=== PATIENT | male | born 1935 | race Caucasian/White ===

== ENCOUNTER → 2020-12-14 | Outpatient (CLI) | payer MEDICARE, OTHER ==
[~2020-12-14] MED LIST: ELIQUIS5 MG PO; FURO20; FURO20 PO; Ferrous Sulfate PO; LOSA50 PO; METO100ER PO; PACERONE100 M1 PO; PANT40 PO; PRAVASTATIN SOD40 MG PO; SPIR25 PO; TRESIBA SC
[2020-12-14 20:44] LABS: Creatinine, Urine Random 59.3 mg/dL (27.00-270.00); Microalb/Creat Ratio UR, Rand 8.651 mg/g (0.000-30.000); Microalbumin, Random Urine 5.13 mg/L (0.000-20.000)
== END | disposition home or self-care (01) ==
LOC: LAB SHORT 16:18 → LAB EV 16:18
PROVIDERS: Family Medicine
DX: E11.65 Type 2 diabetes mellitus with hyperglycemia (principal)
CPT/HCPCS: 82043; 82570

== ENCOUNTER 2021-04-22 23:06 | Emergency (ER) | payer MEDICARE, OTHER ==
[~2021-04-22] VITALS: Ht 177.8 cm; Wt 72.6 kg
== END 2021-04-23 20:48 | disposition home or self-care (01) ==
LOC: ER 23:06
DX: E11.649 Type 2 diabetes mellitus with hypoglycemia without coma (principal); I48.91 Unspecified atrial fibrillation; Z79.899 Other long term (current) drug therapy; Z79.01 Long term (current) use of anticoagulants; Z79.4 Long term (current) use of insulin
CPT/HCPCS: 82947; 96365; 96366; 99284-25

== ENCOUNTER → 2021-05-09 | Outpatient (CLI) | payer MEDICARE, OTHER ==
[2021-05-09 09:41] LABS: Calcium, Blood 9.5 mg/dL (8.5-10.1); Creatinine, Blood 1.69 mg/dL (0.60-1.20); Potassium, Blood 4.5 mmol/L (3.5-5.5)
== END | disposition home or self-care (01) ==
LOC: LAB 09:04 → LAB SHORT 09:04
PROVIDERS: Family Medicine
DX: R05.9 Cough, unspecified (principal)
CPT/HCPCS: 80048; 83880

== ENCOUNTER → 2021-08-16 | Outpatient (CLI) | payer MEDICARE, OTHER ==
[2021-08-16 10:13] LABS: BASOPHILS ABSOLUTE AUTO 0.03 K/mm3 (0.00-0.23); BASOPHILS PERCENT AUTO 0 % (0-2); EOSINOPHILS ABSOLUTE AUTO 0.16 K/mm3 (0.00-0.68); EOSINOPHILS PERCENT AUTO 2 % (0-6); Hematocrit 41.2 % (37.0-53.0); IMMATURE GRAN ABSOLUTE AUTO 0.02 K/mm3 (0.00-0.10); IMMATURE GRAN PERCENT AUTO 0 % (0-1); LYMPHOCYTES ABSOLUTE AUTO 0.73 K/mm3 (0.84-5.20); LYMPHOCYTES PERCENT AUTO 10 % (21-46); MONOCYTES ABSOLUTE AUTO 0.54 K/mm3 (0.16-1.47); MONOCYTES PERCENT AUTO 8 % (4-13); Mean Corpuscular HGB 32.1 pg (26.0-34.0); Mean Corpuscular Volume 95 fL (80-100); Mean Platelet Volume 9.7 fL (9.1-12.4); NEUTROPHILS ABSOLUTE AUTO 5.61 K/mm3 (1.96-9.15); NEUTROPHILS PERCENT AUTO 79 % (41-73); Platelet Count 170 K/mm3 (150-400); RDW Coefficient Variation 13.2 % (11.7-14.2); RDW Standard Deviation 45.9 fL (35.1-46.3); Red Blood Cell Count 4.36 M/mm3 (4.30-5.90); White Blood Cell Count 7.09 K/mm3 (4.00-11.30)
[2021-08-16 10:21] LABS: Albumin, Blood 3.4 g/dL (3.4-5.0); Albumin/Globulin Ratio 0.8 (0.8-1.8); Bun/Creatinine Ratio 19.2 (12.0-20.0); Calcium, Blood 9.2 mg/dL (8.5-10.1); Creatinine, Blood 1.72 mg/dL (0.60-1.20); Globulin, Blood 4.4 g/dL (2.2-4.0); Potassium, Blood 4.7 mmol/L (3.5-5.5); Total Protein, Blood 7.8 g/dL (6.4-8.2)
== END | disposition home or self-care (01) ==
LOC: LAB SHORT 10:08
PROVIDERS: Physician Assistant
DX: R10.32 Left lower quadrant pain (principal)
CPT/HCPCS: 80053; 83690; 85025

== ENCOUNTER → 2021-08-18 | Outpatient (CLI) | payer MEDICARE, OTHER ==
[2021-08-18 10:47] LABS: BASOPHILS ABSOLUTE AUTO 0.04 K/mm3 (0.00-0.23); BASOPHILS PERCENT AUTO 1 % (0-2); EOSINOPHILS ABSOLUTE AUTO 0.13 K/mm3 (0.00-0.68); EOSINOPHILS PERCENT AUTO 2 % (0-6); Hematocrit 41.4 % (37.0-53.0); Hemoglobin 13.9 g/dL (13.5-17.5); IMMATURE GRAN ABSOLUTE AUTO 0.03 K/mm3 (0.00-0.10); IMMATURE GRAN PERCENT AUTO 0 % (0-1); LYMPHOCYTES ABSOLUTE AUTO 0.88 K/mm3 (0.84-5.20); LYMPHOCYTES PERCENT AUTO 11 % (21-46); MONOCYTES PERCENT AUTO 6 % (4-13); Mean Corpuscular HGB 31.8 pg (26.0-34.0); Mean Corpuscular HGB Conc 33.6 g/dL (31.5-36.5); Mean Corpuscular Volume 95 fL (80-100); Mean Platelet Volume 9.7 fL (9.1-12.4); NEUTROPHILS ABSOLUTE AUTO 6.81 K/mm3 (1.96-9.15); NEUTROPHILS PERCENT AUTO 81 % (41-73); Platelet Count 185 K/mm3 (150-400); RDW Coefficient Variation 13.3 % (11.7-14.2); RDW Standard Deviation 46.5 fL (35.1-46.3); Red Blood Cell Count 4.37 M/mm3 (4.30-5.90); White Blood Cell Count 8.39 K/mm3 (4.00-11.30)
[2021-08-18 10:56] LABS: Albumin, Blood 3.5 g/dL (3.4-5.0); Albumin/Globulin Ratio 0.8 (0.8-1.8); Bilirubin, Total 0.9 mg/dL (0.1-1.0); Bun/Creatinine Ratio 16.6 (12.0-20.0); Calcium, Blood 9.4 mg/dL (8.5-10.1); Creatinine, Blood 1.45 mg/dL (0.60-1.20); Globulin, Blood 4.2 g/dL (2.2-4.0); Total Protein, Blood 7.7 g/dL (6.4-8.2)
== END | disposition home or self-care (01) ==
LOC: LAB SHORT 10:41 → LAB 10:41
PROVIDERS: Physician Assistant Surgical
DX: R10.9 Unspecified abdominal pain (principal)
CPT/HCPCS: 80053; 83690; 84484; 85025

== ENCOUNTER 2021-10-09 12:16 | Inpatient (IN) | payer MEDICARE, OTHER ==
[~2021-10-09] VITALS: Ht 177.8 cm; Wt 72.9 kg
[~2021-10-09 12:16] MED LIST changes: +Bactrim Ds Tab1 EACH PO; +ONDA4ODT SL
[2021-10-09 12:38] LABS: BASOPHILS ABSOLUTE AUTO 0.01 K/mm3 (0.00-0.23); BASOPHILS PERCENT AUTO 0 % (0-2); EOSINOPHILS ABSOLUTE AUTO 0.01 K/mm3 (0.00-0.68); EOSINOPHILS PERCENT AUTO 0 % (0-6); Hematocrit 35.5 % (37.0-53.0); Hemoglobin 11.9 g/dL (13.5-17.5); IMMATURE GRAN ABSOLUTE AUTO 0.69 K/mm3 (0.00-0.10); IMMATURE GRAN PERCENT AUTO 4 % (0-1); LYMPHOCYTES ABSOLUTE AUTO 0.18 K/mm3 (0.84-5.20); LYMPHOCYTES PERCENT AUTO 1 % (21-46); MONOCYTES ABSOLUTE AUTO 0.65 K/mm3 (0.16-1.47); MONOCYTES PERCENT AUTO 4 % (4-13); Mean Corpuscular HGB 31.4 pg (26.0-34.0); Mean Corpuscular HGB Conc 33.5 g/dL (31.5-36.5); Mean Corpuscular Volume 94 fL (80-100); Mean Platelet Volume 10.1 fL (9.1-12.4); NEUTROPHILS ABSOLUTE AUTO 14.55 K/mm3 (1.96-9.15); NEUTROPHILS PERCENT AUTO 90 % (41-73); Platelet Count 120 K/mm3 (150-400); RDW Coefficient Variation 13.3 % (11.7-14.2); RDW Standard Deviation 45.4 fL (35.1-46.3); Red Blood Cell Count 3.79 M/mm3 (4.30-5.90); White Blood Cell Count 16.09 K/mm3 (4.00-11.30)
[2021-10-09 12:50] LABS: Albumin, Blood 2.7 g/dL (3.4-5.0); Albumin/Globulin Ratio 0.7 (0.8-1.8); Bilirubin, Direct 0.6 mg/dL (0.0-0.3); Bilirubin, Indirect 1.5 mg/dL (0.1-0.7); Bilirubin, Total 2.1 mg/dL (0.1-1.0); Bun/Creatinine Ratio 17.2 (12.0-20.0); Calcium, Blood 10.4 mg/dL (8.5-10.1); Creatinine, Blood 1.45 mg/dL (0.60-1.20); Globulin, Blood 3.8 g/dL (2.2-4.0); Potassium, Blood 4.9 mmol/L (3.5-5.5); Total Protein, Blood 6.5 g/dL (6.4-8.2)
[2021-10-09 13:12] LABS: International Normalized Ratio 1.29; Prothrombin Time Results 13.3 Sec (9.7-11.5)
[2021-10-09 13:31] LABS: Influenza A, PCR NEGATIVE (NEGATIVE); Influenza B, PCR NEGATIVE (NEGATIVE); Resp Syncytial Virus, PCR NEGATIVE (NEGATIVE); SARS-Cov-2 (COVID-19) PCR, MMC NEGATIVE (NEGATIVE)
[2021-10-09 13:34] LABS: Source, Urine Voided
[2021-10-09 13:49] LABS: Appearance, Urine Hazy (Clear); Bilirubin, Urine Neg (Neg); Blood, Urine 3+ (Neg); Color, Urine Yellow (P-Yellow); Glucose Qualitative, Urine 2+ (Neg); Ketones, Urine 2+ (Neg); Leukocyte Esterase, Urine 1+ (Neg); Nitrite, Urine Neg (Neg); Protein, Urine 3+ (Neg); Specific Gravity, Urine 1.025 (1.003-1.022); Urobilinogen, Urine NORM (Normal)
[2021-10-09 16:25] LABS: Bacteria Mod /hpf; Squamous Epithelial Cells Few /hpf (Few)
[2021-10-09 16:26] LABS: Hyaline Casts 0-2 /lpf (0-2)
[2021-10-09] MEDS ORDERED: FUROSEMIDE20 MG PO (16:47)
[2021-10-09] MEDS ORDERED: ACET500 PO (16:48)
--- NOTE | 2021-10-09 18:47 | NUR ---
SHIFT SUMMARY; PATIENT COMES TO MEDICAL FLOOR AT 1630 TODAY FROM ER. PATIENT HAS MUCH PAIN. PATIENT EXPRESSES PAIN IS 6/10 HOWEVER PATIENT HOLDS HIS BREATH WHEN HE IS MOVED SLIGHTLY AND ALSO WHEN HE LIFTS HIS HANDS TO HIS FACE TO DRINK A CUP OF WATER. HE IS ON A CARDIAC DIET. PATIENT IS ALSO DM TYPE 2. IS CALLED [id number] AND ORDER RECEIVED FOR HUMALOG MED SC. AC AND HS BLOOD SUGARS. IS CALLED AT 1850 AND HE ORDERS PAIN MEDICATION 25 TO 50MCG FENTANYL IV Q4 PRN SEVERE PAIN. ALSO WARMING BLANKET IS ORDERED.
--- NOTE | 2021-10-09 21:45 | NUR ---
TELEMETRY RX OBTAINED D/T PT W/HX AFIB AND PM AND AUSCULTATING RAPID HR AND APICAL PULSE DURING ASSESSMENT. MONITOR READS HR 70'S-80'S BUT WHEN PLACED ON TELEMETRY HE'S AFIB W/HR SUSTAINING 160'S. PLAN TO NOTIFY
--- NOTE | 2021-10-09 22:01 | NUR ---
MADE AWARE OF HR SUSTAINING 150'S-160'S, TOUCHING 180'S WHILE RESTING W/BP 133/113. METROPROLOL 5MG IV NOW RX'D AND RECIEVED, TELE MONITOR AWARE, AWAITING EFFECT. HE DENIES SOB, CP, DYSPNEA AND ALL OTHER S/S DISTRESS OTHER THAN PAIN AND HEARTBURN. PT ALSO RECENTLY VOIDED APPROX 100 MLS CONCENTRATED URINE FOLLOWED BY SUDDEN ONSET BLEEDING FROM URINARY MEATUS. HE ISN'T VOIDIND AT PRESENT BUT CONT'S TO OOZE BLOOD. ABDO IS DISTENDED BUT SOFT AND NONTENDER. PT REPORT IT'S IMPROVED FROM PREVIOUS. MD INSTRUCTED STAFF TO MONITOR BLEEDING FOR S/S WORSENING OR IF PT BECOMES SYTMPTOMATIC FOR POSSIBLE NEED OF UROLOGY CX. HE WAS MADE AWARE OF MISSING HOME MEDS/ORDERS AND MD STATED HE'D EVALUATE NEEDS. WILL MONITOR CLOSELY FOR CHANGES/WORSENING.
--- NOTE | 2021-10-09 22:40 | NUR ---
ALERTED TO HR SUSTAINING 150'S-160'S W/NEW ORDER RECIEVED FOR NS AT 75 ML/HR X1L AND TO GIVE HOME TOPROL XL NOW. GI COCKTAIL ALSO RX'D Q4H PRN FOR PT C/O OF INDIGESTION. PLAN TO MEDICATE FOR "ALL OVER" PAIN W/TYLENOL R/T FALL X1 WEEK PRIOR TO THIS ADMISSION.
--- NOTE | 2021-10-09 23:54 | NUR ---
CALLED FOR UPDATE. PT CONT'S AFIB W/HR 140'S-170'S. NEW ORDERS FOR LOPRESSOR 5MG IV NOW AND TRASFER TO PCU IF RATE CONT'S ELEVATED 30 MINS AFTER DRAG CAR RACER. DISCUSSED ABDO PAIN COMPLAINTS, INDIGESTION, RECENT FALL, DISTENSION AND NO BM X3-4 DAYS W/RX FOR CT OF ABDO/PEVIS. BLADDER SCAN ORDERED W/PULIDO INSERTION FOR RETENTION AND CONT BLADDER IRRIGATION IF BLEEDING AT URINARY MEATUS PERSISTS. WILL MONITOR CLOSELY. ENTERPRISE DATA ARCHITECT AWARE.
[2021-10-10 00:49] LABS: Source, Urine Foley catheter
--- NOTE | 2021-10-10 00:55 | NUR ---
16FR COUDE CATHETER INSERTED BY ERIC SHARPE W/STERILE TECHNIQUE MAINTAINED FOR URINARY RETENTION. BLADDER SCAN >450 MLS AND PT HAD CONTINUED TO C/O ABDO DISTENSION AND LLQ PAIN. DARK NIRANJAN, BLOOD TINGED CONCENTRATED UO OBSERVED. SPECIMEN OBTAINED AND SENT, PENDING CX.
[2021-10-10 00:56] LABS: Bilirubin, Urine Neg (Neg); Blood, Urine 5+ (Neg); Glucose Qualitative, Urine 2+ (Neg); Ketones, Urine 1+ (Neg); Leukocyte Esterase, Urine Neg (Neg); Nitrite, Urine Neg (Neg); Protein, Urine 3+ (Neg); Specific Gravity, Urine 1.025 (1.003-1.022); Urobilinogen, Urine 1+ (Normal)
[2021-10-10 00:57] LABS: Appearance, Urine Cloudy (Clear); Color, Urine Amber (P-Yellow)
[2021-10-10 01:05] LABS: Amorphous Heavy (0-Heavy); Bacteria Few /hpf; Hyaline Casts 0-2 /lpf (0-2); Mucus Light (0-Heavy); Squamous Epithelial Cells Not Seen /hpf (Few); White Blood Cells, Urine 0-2 /hpf (0-5)
--- NOTE | 2021-10-10 01:27 | NUR ---
UPDATED TO VITALS W/ADDITIONAL 25OML NS BOLUS RX'D AND COMMENCED AT THIS TIME. PT COMMENCED ON 1L O2 VIA NC FOR SPO2 88% ON RA. PT DENIES SOB OR DYSPNEA BUT ADMITS TO SHALLOW RAPID BREATHS R/T ABDO AND SHOULDER PAIN. LS REMAIN CLEAR BUT DIMINISHED T/O. SHE INSTRUCTED TO HOLD OFF ON ABDO CT UNTIL BP AND HR ARE BETTER STABILIZED.
--- NOTE | 2021-10-10 02:50 | NUR ---
AFTER 2ND 250ML BOLUS VITALS ONLY MINIMALLY IMPROVED AND UPDATE PROVIDED TO . PT CONT'S HYPOTENSIVE AND TACHYCARDIC W/HR NEVER SUSTAINING LESS THAN 140'S AND SBP NEVER GREATER THAN 92. TEMP UP TO 101.8 W/BLANKETS REMOVED FOR IMPROVEMENT DOWN TO 98.2. INSTRUCTED TO T/F TO PCU. INTERNATIONAL ACCOUNT REPRESENTATIVE AND RN EPITAXIAL REACTOR TECHNICIAN MADE AWARE. BED PLACEMENT PENDING.
--- NOTE | 2021-10-10 03:13 | NUR ---
REPORT PROVIDED TO JOANN, DUCT LAYER AND PT T/F TO PCU 19 AT THIS TIME.
--- NOTE | 2021-10-10 03:40 | NUR ---
UPDATE PT TRANSFERRED TO PCU 19 FROM MEDICAL FLOOR. BP STABLE. OXYGEN SATURATION MAINTAINED ABOVE 92% ON 2 L VIA NC. HR TACHY 120'S-130'S. PHYSICIAN UPDATED, ORDERS FOR CARDIZEM GTT AT 5 ML/HR.
[2021-10-10 03:57] LABS: BASOPHILS ABSOLUTE AUTO 0.02 K/mm3 (0.00-0.23); BASOPHILS PERCENT AUTO 0 % (0-2); EOSINOPHILS PERCENT AUTO 0 % (0-6); Hematocrit 33.7 % (37.0-53.0); Hemoglobin 11.4 g/dL (13.5-17.5); IMMATURE GRAN ABSOLUTE AUTO 0.15 K/mm3 (0.00-0.10); IMMATURE GRAN PERCENT AUTO 1 % (0-1); LYMPHOCYTES ABSOLUTE AUTO 0.28 K/mm3 (0.84-5.20); LYMPHOCYTES PERCENT AUTO 2 % (21-46); MONOCYTES ABSOLUTE AUTO 0.42 K/mm3 (0.16-1.47); MONOCYTES PERCENT AUTO 3 % (4-13); Mean Corpuscular HGB 31.4 pg (26.0-34.0); Mean Corpuscular HGB Conc 33.8 g/dL (31.5-36.5); Mean Corpuscular Volume 93 fL (80-100); Mean Platelet Volume 10.5 fL (9.1-12.4); NEUTROPHILS ABSOLUTE AUTO 11.72 K/mm3 (1.96-9.15); NEUTROPHILS PERCENT AUTO 93 % (41-73); Platelet Count 110 K/mm3 (150-400); RDW Coefficient Variation 13.2 % (11.7-14.2); RDW Standard Deviation 45.7 fL (35.1-46.3); Red Blood Cell Count 3.63 M/mm3 (4.30-5.90); White Blood Cell Count 12.59 K/mm3 (4.00-11.30)
[2021-10-10 04:20] LABS: Bun/Creatinine Ratio 23.1 (12.0-20.0); Calcium, Blood 9.7 mg/dL (8.5-10.1); Creatinine, Blood 1.3 mg/dL (0.60-1.20); Potassium, Blood 4.6 mmol/L (3.5-5.5)
--- NOTE | 2021-10-10 06:14 | NUR ---
SHIFT SUMMARY PT ARRIVED TO UNIT FROM MEDICAL FLOOR DURING SHIFT,SEE NOTES. HR AFIB, TACHY 130'S-140'S, BP STABLE. MAP ABOVE 65. PHYSICIAN ORDERS FOR PT TO START CARDIZEM GTT AT 5ML/HR. NO TITRATION. PLAN FOR PT TO GO TO CT FOR ABD PAIN ONCE HR IS STABILIZED. HR CURRENTLY 110-130. TRENDING DOWN WITH CARDIZEM GTT. OXYGEN SATURATION MAINTAINED ABOVE 92% ON 2 L VIA NC. PT REPORTS PAIN D/T FALL AT HOME ON 10/01. PT STATES HE DOES NOT NEED ANYTHING FOR PAIN AT THIS TIME. PULIDO PATENT AND DRAINING TO GRAVITY. CALL LIGHT WITHIN REACH. WILL CONT TO MONITOR UNTIL REPORT GIVEN TO ELTON BARNES.
--- NOTE | 2021-10-10 07:33 | NUR ---
UPDATE CALLED FOR UDPATE FROM MEDICAL FLOOR. PT GAVE VERBAL CONSENT FOR UPDATE.
--- NOTE | 2021-10-10 14:13 | NUR ---
NOTIFIED DR BROWN OF CT RESULTS AND NO BM SINCE 10/07; NEW ORDERS FOR CLEAR LIQUIDS. WILL CONTINUE TO MONITOR.
--- NOTE | 2021-10-10 16:04 | NUR ---
PER ORDER EKG TO CONFIRM SINUS TACH, NOTIFIED DR BROWN, NEW ORDER TO STOP CARDIZEM GTT. AT APPROX 1500 PT REPORTS "MUSCLE" NECK PAIN, MEDICATED WITH TYLENOL PER ORDERS. PT REPORTS CHEST PAIN, UNABLE TO GIVE NUMERIC VALUE, FACE SCALE 8/10 BY THIS RN; PT STATES IT IS "JUST MUSCLE PAIN", REPORTS PRESSURE TO LEFT SIDE SIDE OF CHEST, PAIN DOES NOT CHANGE WITH MOVEMENT OR BREATHING. PER TELE PT CONVERTED BACK TO AFIB. RESP RATE AND EFFORT INCREASED. NOTIFIED DR BROWN, NEW ORDER TO CHECK TROP AND RESTART CARDIZEM. DR CONNORS AT BEDSIDE, NEW ORDERS FOR LR AT 100 ML/HR. PT REQUESTING ADDITIONAL PAIN MEDICATION, MEDICATED x2 WITH FENTANYL, PT REPORTING SMALL AMOUNT OF RELIEFE. WILL CONTINUE TO MONITOR.
--- NOTE | 2021-10-10 17:29 | NUR ---
SHIFT SUMMARY PATIENT REMAINED ALERT AND ORIENTED T/O THE DAY. HE WAS COOPERATIVE WITH CARE. PATIENT'S CARDIZEM WAS STOPPED AFTER HIS RHYTHM WENT INTO THE SINUS TACH. PATIENT DEVELOPED CP AND UPPER BACK PAIN SOON AFTERWARDS. PATIENT WENT BACK INTO AFIB WITH RATES 110-130'S. DR BROWN WAS NOTIFIED. DR CONNORS WAS CONSULTED, EMAR MEDS UPDATED, AND PATIENT IS NOW ON NPO. PATIENT RECEIVED FENTANYL PER EMAR AND WAS STARTED BACK ON CARDIZEM DRIP. CURRENTLY TELE IS AFIB WITH RATE 110'S. VSS. PATIENT DENIES SOB, N/V, TINGLING/NUMBNESS SENSATION.
--- NOTE | 2021-10-10 19:47 | NUR ---
I HAVE REVIEWED THE FILTER WORKER DOCUMENTATION AND AM IN AGREEMENT. CLARIFIED NPO STATUS AND INSULIN CBG WITH DR BROWN, NEW ORDER FOR Q6 CBG AND INSULIN ENTERED. PT APPEARS TO BE SLEEPING THIS EVENING. PER TELE PT CONVERTED BACK TO SINUS TACH THIS EVENING, NOTIFIED DR BROWN, ORDERS TO CONTINUE CARDIZEM AT LOWEST RATE T/O NIGHT. REPORT GIVEN TO ONCOMING RN.
--- NOTE | 2021-10-10 22:31 | NUR ---
UPDATE PHYSICIAN NOTIFIED OF PT'S BNP OF 283. ORDERS FOR LASIX 40 MG NOW.
--- NOTE | 2021-10-10 23:00 | NUR ---
UPDATE/HOLDING IV FLUIDS D/T PT HAVING INCREASE IN WORK OF BREATHING, AND PT APPEARING IN FLUID OVERLOAD. HOLDING LR AT THIS TIME PER CLINICAL JUDGMENT. WILL INFORM HOSPITALIST.
--- NOTE | 2021-10-10 23:56 | NUR ---
UPDATE DISCUSSED INCREASING PT CONFUSION WITH A CLASS LINEMAN. PLAN FOR PT'S DAUGHTER TO COME SIT BEDSIDE WITH PT TO ASSIST IN RE-DIRECTION AND PROVIDE PT WITH COMFORT.
--- NOTE | 2021-10-11 02:45 | NUR ---
UPDATE\ PT HAVING INCREASE IN CONFUSION. PT MOVED TO [facility] ROOM FOR SAFETY. PT NO LONGER KNOWS WHERE HE IS. PT CONT TO HAVE INCREASED WORK OF BREATHING, HR INCREASING TO 130'S TO 140'S. PHYSICIAN NOTIFIED. ORDERS FOR VBG AND TO CALL HOSPITALIST WITH RESULT.
[2021-10-11 03:20] LABS: Base Excess Venous 2.2 mmol/L; Bicarbonate Venous 26.4 mmol/L (24.0-30.0); PO2 Venous 70.8 mmHg (38-42); pH Blood Venous 7.47 (7.34-7.37)
--- NOTE | 2021-10-11 03:52 | NUR ---
UPDATE PHYSICIAN UPDATED ON PT'S VBG. PT ANXIOUS AT THIS TIME. HR SUSTAINING 140-160. ORDERS FOR ATIVAN 0.5 MG ONCE TO ATTEMPT TO SEE IF PT'S ANXIETY IS CAUSING HIGH HR. INSTRUCTED TO INFORM PHYSICIAN IF HR DOES NOT LOWER AFTER ATIVAN GIVEN.
--- NOTE | 2021-10-11 05:17 | NUR ---
UPDATE PHYSICIAN NOTIFIED PT'S INCREASE IN RR IN 40'S. PT INCREASED TO 6 L VIA NC. RT NOTIFIED. ORDERS FOR CPAP/BIPAP AT THIS TIME. PT VERY AGGITATED PULLING AT LINES. DAUGHTER UPDATED ON PT STATUS, ENCOURAGED TO COME BE WITH PT AT BEDSIDE. PHYSICIAN CALLED TO INFORM OF PT'S AGGITATION, WAITING LEAD TRAINER BACK. POLYTECHNIC REGISTRAR AT BEDSIDE TO ASSIST IN PT FROM PULLING AT LINES. WILL UPDATE ONCE SPOKE WITH PHYSICIAN.
--- NOTE | 2021-10-11 05:24 | NUR ---
UPDATE ORDERS FOR PT TO TRANSFER TO ICU. ICU FAITH DOCTOR INFORMED. WILL CONT TO MONITOR UNTIL REPORT GIVEN TO FINISHER SPECIAL STOCKS.
--- NOTE | 2021-10-11 06:15 | NUR ---
PT TRANSFER/SHIFT SUMMARY PT'S DAUGHTER AT BEDSIDE AT THIS TIME. PRIOR TO PT TRANSFER PT'S DAUGHTER BEBO STATED SHE IS POA AND THAT PT HAS ORDERS FOR DNR. CARPENTER ASSISTANT INSTALLER INFORMED. CARPENTER ASSISTANT INSTALLER TO INFORM PHYSICIAN OF CODE STATUS UPDATE. PRIOR TO TRANSFER PT ON BIPAP, SEE EHR FOR SETTINGS. NEWCOMER HOSTESS AT BEDSIDE TO ASSIST PT FROM PULLING OFF BIPAP AND PULIDO. PT PULLED OUT IV. DAUGHTER AT BEDSIDE WITH PT PRIOR TO TRANSFER, ORDERS FOR BILATERAL SOFT WRIST RESTRAINTS. THIS RN, MOLLY LIANG AND BECCA RT ASSISTED IN PT TRANSFER TO ICU 15. PT HAS ALL BELONGINGS WITH HIM. CARPENTER ASSISTANT INSTALLER INFORMED HOSPITALSIT WANTED TO BE CALLED ONCE TRANSFERRED. DURING SHIFT PT'S HR TACHY, SEE EHR. BP SOFT AT TIMES. MAP REMAINED ABOVE 65. OXYGEN DEMAND INCREASED DURING SHIFT TO MAINTAIN SATS ABOVE 92%. SEE EHR FOR SETTINGS. PT CURRENTLY ON BIPAP AT 50% FIO2 WHEN TRANSFERRED TO ICU. NO CP OR PRESSURE REPORTED DURING SHIFT. PT INCREASINGLY CONFUSED AND AGGITATED T/O SHIFT. PT ALERT AND ORIENTED AT BEGINNING OF SHIFT, AT END OF SHIFT PT ALERT TO SELF AND FAMILY. PT ON CARDIZEM GTT AT 5 MG/5ML/HR. ORDERS FROM HOSPITALIST NOT TO INCREASE RATE OF CARDIZEM D/T BP. HOSPITALIST INFORMED LR STOPPED AT 2200 D/T PT'S INCREASE IN WORK OF BREATHING AND PT APPEARING TO BE IN FLUID OVERLOAD, PHYSICIAN ORDERS TO HOLD LR DURING SHIFT. REPORT GIVEN TO MOLLY SPAULDING AT 0600.
--- NOTE | 2021-10-11 06:47 | NUR ---
ARRIVAL TO ICU PT ARRIVED TO ICU 15 AT 0600 VIA PCU BED AND TRANSFERED TO ICU BED VIA SLIDE SHEET. PT IS ALERT/ORIENTED TO SELF, FAMILY, FOLLOWS DIRECTIONS, AND TOWN BUT IS ALSO CONFUSED ABOUT SITUATION; OCCATIONALLY ASKS FOR FOOD AND HAS VISUAL HALLUCINATIONS. DAUGHTER IS AT BEDSIDE AND IS VERY HELPFUL IN REDIRECTING PT TO NOT PULL AT MASK. BIPAP IN PLACE WITH SETTINGS 14/8, FIO2 40%. HR 140-150. SBP 110-120; CARDIZEM INFUSING AT 5MG/HR, TITRATED UP TO 7MG/HR, DR RAMIREZ NOT WANTING CARDIZEM TO GO OVER 10MG/HR. ABD SEVERLY DISTENDED AND NOT TENDER AT THIS TIME. PULIDO IN PLACE AND DRAINING TO GRAVITY. SEVERAL BRUSES NOTED TO LT EYE, NECK, AND LLE. REPORT GIVEN TO WILLIAM BARNES. DAUGHTER CLARIFIED THAT PT IS A DNR STATUS. DR RAMIREZ NOTIFIED AND ORDER CHANGED. PURPLE DNR BAND ON RT WRIST.
--- NOTE | 2021-10-11 07:19 | NUR ---
Received report from Sivan BARNES. Patient awake in bed with CPAP in place. He is alert to place , self and year, and is able to communicate his needs. CAPAP 15/8 40% and sats 100%. He has 20ga IV in LFA and is infusing Cardizem at 10 mg/hr. He has 167Fr roy draining to gravity light aston colored urine. He is in bilateral soft wrist restraints, skin and circulation checked.
[2021-10-11 08:27] LABS: BASOPHILS ABSOLUTE AUTO 0.06 K/mm3 (0.00-0.23); BASOPHILS PERCENT AUTO 1 % (0-2); EOSINOPHILS PERCENT AUTO 0 % (0-6); Hematocrit 37.1 % (37.0-53.0); Hemoglobin 12.4 g/dL (13.5-17.5); IMMATURE GRAN PERCENT AUTO 1 % (0-1); LYMPHOCYTES ABSOLUTE AUTO 0.31 K/mm3 (0.84-5.20); LYMPHOCYTES PERCENT AUTO 3 % (21-46); MONOCYTES PERCENT AUTO 8 % (4-13); Mean Corpuscular HGB Conc 33.4 g/dL (31.5-36.5); Mean Corpuscular Volume 93 fL (80-100); Mean Platelet Volume 10.7 fL (9.1-12.4); NEUTROPHILS ABSOLUTE AUTO 11.18 K/mm3 (1.96-9.15); NEUTROPHILS PERCENT AUTO 88 % (41-73); Platelet Count 112 K/mm3 (150-400); RDW Coefficient Variation 13.4 % (11.7-14.2); RDW Standard Deviation 46.3 fL (35.1-46.3); White Blood Cell Count 12.65 K/mm3 (4.00-11.30)
[2021-10-11 08:58] LABS: Albumin, Blood 2.3 g/dL (3.4-5.0); Albumin/Globulin Ratio 0.5 (0.8-1.8); Bilirubin, Total 1.5 mg/dL (0.1-1.0); Bun/Creatinine Ratio 28.2 (12.0-20.0); Calcium, Blood 9.3 mg/dL (8.5-10.1); Creatinine, Blood 1.24 mg/dL (0.60-1.20); Globulin, Blood 4.4 g/dL (2.2-4.0); Magnesium, Blood 2.2 mg/dL (1.6-2.4); Phosphorus, Blood 1.8 mg/dL (2.5-4.9); Potassium, Blood 4.1 mmol/L (3.5-5.5); Total Protein, Blood 6.7 g/dL (6.4-8.2)
--- NOTE | 2021-10-11 09:50 | NUR ---
Patient remains awake with intermittent resting, he continually figets with lines and blankets. He is on 2L O2 via NC sats >90%. Dr Ramirez in room with family and patient. He remains in A-Fib RVR with rates in the 130's. Cardizem titrated to 15 mmg/hr.
--- NOTE | 2021-10-11 11:30 | NUR ---
Patient has had family at bedside most of shift he is resting more and has increased visual hallucinations. Dr Pradhan spoke with [facility] hospitalist and Dr Rivas. Hospitalist came by and spoke with family and patient. He remaisn in A-Fib 120-150's. Cardizem remains at 15 mg/hr. He has been off and on CPAP, mostly on at 15/8 35% and sats >95%.
--- NOTE | 2021-10-11 15:00 | NUR ---
Patient just returned from CT where he had drain placed in gallbladder and had thin black fluid return, call Dr Rivas and no test on fluid. Patient remains on Diltiazem at 15mg/hr and HR 120-140's. He is currently on 3L O2 via NC and 6L O2 during procedure.
--- NOTE | 2021-10-11 16:04 | NUR ---
Several visits today with the family addressing spiritual and emotional needs. I provided the connection for the pt to have the Eucharistic historiography teacher come and administer the sacraments, I assisted pt's Tena josue, and Kb Briceno, with the emotional aspects of medical decision making and provide therapeutic listening and prayer. Family and patient respond well to all interventions and show signs of increased peace. I will continue to remain available to patient and family.
--- NOTE | 2021-10-11 17:32 | NUR ---
ASSUMED CARE OF PATIENT PATIENT SITTING QUIETLY IN BED, WATCHING TV. PRECEDEX AND DILTIAZEM DRIPS DECREASED FOR HYPOTENSION. PATIENT HAS NO COMPLAINTS OF PAIN. BED LOW, CALL LIGHT IN REACH, BED ALARM ON. WILL CONTINUE TO MONITOR.
--- NOTE | 2021-10-11 18:47 | NUR ---
SHIFT SUMMARY PRECEDEX DRIP AT 0.5 MCG/ KG/ HOUR. DILTIAZEM DRIP ON SB. HR IN THE 80S AND LAST SBP IN THE 80S WITH MAP OVER 65. NO OTHER ACUTE CHANGES TO NOTE ON AT THIS TIME FROM TIME OF ASSUMPTION OF CARE. PATIENT SLEEPING SOUNDLY WITH CPAP ON. BED LOW, CALL LIGHT IN REACH, BED ALARM ON. REPORT WILL BE GIVEN TO ASSUMING CARPENTER MINE NURSE SHORTLY.
--- NOTE | 2021-10-11 18:49 | NUR ---
SHIFT SUMMARY PATIENT REMAINED INTUBATED, WITH NO SEDATION. PATIENT STARTED FOLLOWING COMMANDS THIS SHIFT. PATIENT ABLE TO SQUEEZE, WEAKLY, WITH BILAT HANDS AND WIGGLE TOES ON BILAT FEET. PATIENT STARTED ANSWERING QUESTIONS WITH EITHER NODDING/ SHAKING OF HEAD OR WITH BLINKING TWICE FOR YES AND ONCE FOR NO. PATIENT HAS TMAX OF 99.2 DEGREES FAHRENHEIT. PATIENT GIVEN PRN FENTANYL FOR COMPLAINTS OF PAIN A FEW TIMES THIS SHIFT. LUNGS REMAINED CRACKLY OR RHONCHOROUS. PATIENT ON AC 16, TV 350, PEEP 5 AND 30% FIO2. PATIENT PLACED ON SPONTANEOUS PRESSURE SUPPORT THIS AM OF 5/5 AND 30% FIO2 AND HAS REMAINED ON PS SINCE. PURULENT SPUTUM REMAINS BEING SUCTIONED FROM ETT. PATIENT IN SR, HR 80S TO 90S. SBP 90S TO LOW 100S. PATIENT GIVEN SEVERAL DOSES OF DIURETIC THIS SHIFT AND ALBUMIN X 1. 300 MLS OF BROWN/ MAROON STOOL OUT FROM RECTAL TUBE. TF REMAINED AT GOAL RATE. PULIDO DRAINED 775 MLS OF BROWN URINE WITH CRANBERRY SEDIMENT IN IT. RASH REMAINED THE SAME TO THIGHS AND ABD. PATIENT REPOSITIONED Q2H. NS REMAINS TKO. BLOOD SUGARS DID NOT NEED COVERAGE THIS SHIFT. IN MOST OF THE DAY. NO SIGNS OF PAIN NOTED AT THIS TIME. BED LOW, CALL LIGHT IN REACH. REPORT WILL BE GIVEN TO ASSUMING RN TRIAGE NURSE SHORTLY.
--- NOTE | 2021-10-11 19:10 | NUR ---
ASSUMED CARE ASSUMED CARE OF PATIENT. PT REMAINS ON BIPAP- SETTINGS /, BUR 15, FIO2 30%. RR MID-20s. HR 60s-70s. BP 78/61. CARDIZEM IS OFF. PRECEDEX DECREASED FROM 0.5MCG/KG/HR TO 0.3MCG/KG/HR AT THIS TIME. PT RESPONDS TO VERBAL STIMULI. OPENS EYES. FOLLOWS SIMPLE COMMANDS. MOVES ALL EXTREMITITES. SPEECH IS INCOMPREHENSIBLE AT THIS TIME. DOES BECOME AGITATED WITH STIMULATION. REACHES FOR BIPAP AND PULLS ON IV LINES, BUT IS SOMEWHAT RE-DIRECTABLE AT THIS TIME. PULIDO PATENT AND DRAINING TO GRAVITY. NPO. SEE SHIFT ASSESSMENT FOR FULL ASSESSMENT.
--- NOTE | 2021-10-11 19:30 | NUR ---
HYPOTENSION BP 60/48- PRECEDEX TURNED OFF AT THIS TIME.
--- NOTE | 2021-10-11 20:30 | NUR ---
AGITATION PT IS AGITATED AND IS PULLING OFF BIPAP AND PULLING ON IV LINES. BP IS CURRENTLY 85/63. PRECEDEX RESTARTED AT 0.2MCG/KG/HR.
--- NOTE | 2021-10-11 21:15 | NUR ---
RESTRAINTS PT WITH INCREASED AGITATION. PULLING ON TUBES/LINES AND IS CURRENTLY NOT RE-DIRECTABLE. BILATERAL SOFT WRIST RESTRAINTS ON AT THIS TIME.
--- NOTE | 2021-10-12 02:47 | NUR ---
UPDATE PT AWAKE AND ALERT. FOLLOWING SIMPLE COMMANDS. SPEECH IS CLEAR, BUT SLOW. PT DOES NOT KNOW WHERE HE IS. DOES NOT KNOW HIS OWN NAME OR DATE/TIME. CHANGED TO NC AT THIS TIME- 3L. CARDIZEM NOW AT 7.5MG/HR.
[2021-10-12 03:43] LABS: BASOPHILS ABSOLUTE AUTO 0.01 K/mm3 (0.00-0.23); BASOPHILS PERCENT AUTO 0 % (0-2); EOSINOPHILS ABSOLUTE AUTO 0.03 K/mm3 (0.00-0.68); EOSINOPHILS PERCENT AUTO 0 % (0-6); Hematocrit 29.7 % (37.0-53.0); IMMATURE GRAN ABSOLUTE AUTO 0.11 K/mm3 (0.00-0.10); IMMATURE GRAN PERCENT AUTO 1 % (0-1); LYMPHOCYTES PERCENT AUTO 5 % (21-46); MONOCYTES ABSOLUTE AUTO 0.83 K/mm3 (0.16-1.47); MONOCYTES PERCENT AUTO 8 % (4-13); Mean Corpuscular HGB 31.1 pg (26.0-34.0); Mean Corpuscular HGB Conc 33.7 g/dL (31.5-36.5); Mean Corpuscular Volume 92 fL (80-100); Mean Platelet Volume 10.5 fL (9.1-12.4); NEUTROPHILS ABSOLUTE AUTO 8.57 K/mm3 (1.96-9.15); NEUTROPHILS PERCENT AUTO 85 % (41-73); Platelet Count 96 K/mm3 (150-400); RDW Coefficient Variation 13.5 % (11.7-14.2); RDW Standard Deviation 45.9 fL (35.1-46.3); Red Blood Cell Count 3.22 M/mm3 (4.30-5.90); White Blood Cell Count 10.05 K/mm3 (4.00-11.30)
[2021-10-12 03:59] LABS: Alanine Aminotransfer (ALT/SGP 24 U/L (12-78); Albumin, Blood 1.7 g/dL (3.4-5.0); Albumin/Globulin Ratio 0.5 (0.8-1.8); Alk Phos 58 U/L (50-136); Anion Gap 8 mmol/L (6-16); Aspartate Aminotrans (AST/SGOT 40 U/L (12-37); Bilirubin, Total 1.2 mg/dL (0.1-1.0); Blood Urea Nitrogen 45 mg/dL (8-24); Bun/Creatinine Ratio 40.2 (12.0-20.0); CO2, Blood 21 mmol/L (21-32); Calcium, Blood 7.8 mg/dL (8.5-10.1); Chloride, Blood 109 mmol/L (98-108); Creatinine, Blood 1.12 mg/dL (0.60-1.20); Globulin, Blood 3.4 g/dL (2.2-4.0); Glomerular Filtration Rate >60 (60-); Glucose, Blood 156 mg/dL (70-99); Phosphorus, Blood 1.7 mg/dL (2.5-4.9); Potassium, Blood 3.2 mmol/L (3.5-5.5); Sodium, Blood 138 mmol/L (136-145); Total Protein, Blood 5.1 g/dL (6.4-8.2)
--- NOTE | 2021-10-12 06:41 | NUR ---
SHIFT SUMMARY PT ALERT AND NOW MORE ORIENTED. ORIENTED TO SELF, PLACE, AND SOMEWHAT TO RECENT EVENTS. NOT ORIENTED TO DATE/TIME. COOPERATIVE WITH CARE. RESTRAINTS DC/D AT 0315. CARDIZEM INFUSED BETWEEN 2.5-15MG/HR DURING NOC. NOW AT 10MG/MIN. LEVOPHED AT 3MCG/MIN THIS AM TO MAINTAIN MAP >65. AFEBRILE T/O SHIFT. O2 NOW AT 4LNC. RESPIRATIONS EVEN AND UNLABORED. PULIDO PATENT AND DRAINING TO GRAVITY. PASSED LARGE AMOUNT OF SOFT BROWN STOOL. DRAIN INTACT TO GALLBLADDER/RIGHT ABDOMEN WITH APPROXIMATELY 30CC LIQUID BROWN DRAINAGE. RECEIVING POTASSIUM PHOSPHATE REPLACEMENT. WILL REPORT TO ONCOMING RN WHEN AVAILABLE.
--- NOTE | 2021-10-12 12:50 | NUR ---
Patient is lying in bed and alert. Pt's Tena josue and Kb Briceno are bedside. Pt is much more clear and has more energy today than the last spiritual care visit. Pt tells me stories of his hobbies, his interests, his orthodoxy beliefs and his philosophies about life. He says that he is happy to be DNR and is looking forward to being God's presence because God is where his deepest love lies. I later hear from family about the family unit complications for both the pt while he was growing up and for his family as they grow up under his leadership. I reinforce helpful attitudes and practices and provide emotional/spiritual support to pt and family. I provide therapeutic listening, assistance in end-of-life decision making and prayer. Pt and family respond well and show signs of increased peace and some reconciliation. I will continue to remain available to patient and family.
[2021-10-12 16:58] LABS: Vancomycin, Trough 13.1 ug/mL (5.0-10.0)
--- NOTE | 2021-10-12 18:29 | NUR ---
SUMMARY PT HAS BEEN A/O TO PERSON, PLACE, SURROUNDINGS, AND DATE TODAY. PT IS SHARP WHEN IT COMES TO KNOWING MEDICATIONS AND WHAT THEY ARE FOR. PT KNOWS HE WAS HALLUCINATING LAST NIGHT AND IS APOLOGETIC. GAINING MORE STRENGTH THE DAY PROGRESSES. ABLE TO FEED SELF DINNER AND IS NOW TURNING SELF IN BED. OFF CARDIZEM GTT AND STARTED ON PO METOPROLOL. LEVOPHED OFF AT SAME TIME CARDIZEM. DR. BROWN WANTS TO KEEP HIM IN ICU ONE MORE NIGHT. DAUGHTERS IN TO SEE HIM TODAY. PT SPOKE WITH ON THE PHONE. NO SIGN OF DISTRESS.
--- NOTE | 2021-10-12 20:24 | NUR ---
ASSUMED CARE AT 1900 PATIENT IS ALERT AND ORIENTED X4. FOLLOWS COMMANDS, COOPERATIVE WITH CARE. GENERALIZED WEAKNESS. 02 SATS >93% ON 4L VIA NC, RR IN THE 20s. LS CLEAR/COARSE TO DIM. CONGESTED COUGH WITH NO SPUTUM PRODUCTION. HR A. FIB 100-115. BP STABLE. DENIES CP/PRESSURE. ABD WITH MODERATE DISTENTION, PATIENT DENIES TENDERNESS OTHER THAN NEAR GALLBLADDER DRAIN SITE WITH A URESIL DRAIN, WITH BROWN DRAINAGE. PULIDO PATENT AND DRAINING TO GRAVITY, NIRANJAN URINE. BRUISING AND SCABS SCATTERED THROUGHOUT, MOSTLY LEFT SIDE, PT STATES FROM FALL, NO OPEN WOUNDS. PATIENT ABLE TO REPOSITION SELF, OFFERED TO ASSIST AND PATIENT REFUSED. SEE SHIFT ASSESSMENT FOR MORE DETAIL.
--- NOTE | 2021-10-13 06:05 | NUR ---
UPDATE PT TRANSFERRED FROM ICU. PT ALERT AND ORIENTED. VS STABLE. O2 SATS >90% ON 4L NC. BP STABLE. HR AFIB 110'S. PT DENIES ANY PAIN. URESIL DRAIN NOTED TO RUQ WITH SMALL AMOUNT OF BROWN OUTPUT NOTED. PULIDO PATENT AND DRAINING CLEAR YELLOW URINE. ATTENDS CHANGED UPON ARRIVAL AND SMALL INCONTINENT SMEAR NOTED. PT ORIENTED TO NEW ROOM AND UNIT. PT'S DAUGHTER NOTIFIED OF TRANSFER BY ICU NURSE. WILL CONTINUE TO MONITOR AND REPORT TO ONCOMING RN
--- NOTE | 2021-10-13 06:06 | NUR ---
REPORT GIVEN TO CONTRACT LEAD, PATIENT TRANSFERRED TO PCU. PATIENTS FAMILY NOTIFIED OF PATIENTS TRANSFER,
--- NOTE | 2021-10-13 08:39 | NUR ---
heart rate increased to 147-160 with the activity of sitting up, eating breakfast in bed. No distress, denies pain, no dyspnea noted. Metoprolol given po as scheduled. Blood pressure is low at 88/64, MAP of 73. ball sorter notified.
[2021-10-13 10:38] LABS: BASOPHILS ABSOLUTE AUTO 0.02 K/mm3 (0.00-0.23); BASOPHILS PERCENT AUTO 0 % (0-2); EOSINOPHILS ABSOLUTE AUTO 0.26 K/mm3 (0.00-0.68); EOSINOPHILS PERCENT AUTO 3 % (0-6); Hematocrit 33.7 % (37.0-53.0); Hemoglobin 11.4 g/dL (13.5-17.5); IMMATURE GRAN PERCENT AUTO 3 % (0-1); LYMPHOCYTES ABSOLUTE AUTO 0.57 K/mm3 (0.84-5.20); LYMPHOCYTES PERCENT AUTO 6 % (21-46); MONOCYTES ABSOLUTE AUTO 0.84 K/mm3 (0.16-1.47); MONOCYTES PERCENT AUTO 8 % (4-13); Mean Corpuscular HGB 30.9 pg (26.0-34.0); Mean Corpuscular HGB Conc 33.8 g/dL (31.5-36.5); Mean Corpuscular Volume 91 fL (80-100); Mean Platelet Volume 10.3 fL (9.1-12.4); NEUTROPHILS ABSOLUTE AUTO 8.19 K/mm3 (1.96-9.15); NEUTROPHILS PERCENT AUTO 80 % (41-73); Platelet Count 109 K/mm3 (150-400); RDW Coefficient Variation 13.8 % (11.7-14.2); RDW Standard Deviation 46.7 fL (35.1-46.3); Red Blood Cell Count 3.69 M/mm3 (4.30-5.90); White Blood Cell Count 10.18 K/mm3 (4.00-11.30)
[2021-10-13 10:45] LABS: Anion Gap 5 mmol/L (6-16); Blood Urea Nitrogen 33 mg/dL (8-24); Bun/Creatinine Ratio 31.4 (12.0-20.0); CO2, Blood 26 mmol/L (21-32); Calcium, Blood 8.2 mg/dL (8.5-10.1); Chloride, Blood 104 mmol/L (98-108); Creatinine, Blood 1.05 mg/dL (0.60-1.20); Glomerular Filtration Rate >60 (60-); Glucose, Blood 140 mg/dL (70-99); Potassium, Blood 4.1 mmol/L (3.5-5.5); Sodium, Blood 135 mmol/L (136-145)
--- NOTE | 2021-10-13 12:22 | NUR ---
Dr. Razo here at this time, rounding on the patient. Pt states that he saw another doctor earlier today. I asked the name of the doctor he saw earlier when I was not in the room, and he did know his name, he said, "It was just the garden variety of doctor. I don't know his name." Pt is having some of his clear liquid diet, tolerating this well.
--- NOTE | 2021-10-13 14:51 | NUR ---
Call to Dr. Razo regarding pt's persistent atrial fibrillation at rate of 115-130 today. Also reported to the doctor that the pt has been having low blood pressures, tachypnea, and at this time is reporting to me that he feels like he is "hyperventilating". Respiratory rate noted 28/min. Spo2 98% on 2.5 l/min n.c. Oxygen flow. The pt is not in distress, is carrying on conversation and able to complete full sentences. He does not appear dyspneic. Lying in bed, HOB 30degrees and resting with eyes closed, respirations with use of accessory muscles. He was able to use the flutter valve also, demonstrating good use of it . This was used because the pt this morning c/o not being able to cough up the secretions.
--- NOTE | 2021-10-13 16:43 | NUR ---
Pt. is in bed and awake. Two daughters are present. Pt. and family welcome my visit. Pt. is pleasant and there is healthy banter going on with his family. Establish rapport. Pt. verbalized gratitude for all of the medical care he has received. Pt. confirmed that he had the Eucharist earlier in the day. Prayed for the Pt. Pt. verbalized gratitude for the spiritual care visit, and wished Easter blessings upon this underwriting support manager.
--- NOTE | 2021-10-13 17:35 | NUR ---
Sudden increase in heart rate to 168 bpm; pt stated he needed to void. He had not voided since the roy was discontinued earlier today. Voided 150 cc and heart rate rate decreased to 143, still atrial fibrillation. Pt denies any Shortness of breath, chest pain or other discomfort. He is sitting up eating dinner. Blood pressure 153/132 when heart rate was 169 bpm, atrial fib. At this time, heart rate is 139-155 and blood presure is 94/77 Spo2 95% on 2.5 l/min nasal cannula delivery.
--- NOTE | 2021-10-13 18:07 | NUR ---
Pt's heart rate has decreased to 123-133, and he is asymptomatic, except for blood pressure is low, which prevents an administration of IV metoprolol as previously ordered PRN heart rate greater than 130. Given that the pt's heart rate is normalizing, and blood pressure is low, will hold for now.
--- NOTE | 2021-10-14 06:53 | NUR ---
SHIFT SUMMARY [id number] PT SLEPT WELL OVERNIGHT, ORIENTED X4 WITH SOME SHORT TERM MEMORY LOSS. EASILY SELF-CORRECTS. TACHYCARDIC AND TACHYPNEIC W/ANY MOVEMENT. PRN METOPROLOL GIVEN X3 OVERNIGHT FOR HR 140-160S WITH IMPROVEMENT INTO THE 110-120S. ON 2L NC. OTHER VSS PER PT TREND. PETTY DRAIN TO DD, 50ML BROWN SS OUTPUT OVERNIGHT. NO COMPLAINTS OF PAIN, BM X2. Q2 TURN. BED ALARM IN PLACE. WILL CONTINUE TO MONITOR AND PASS ON TO DAY RN.
--- NOTE | 2021-10-14 14:30 | NUR ---
Bladder scan done to verify that rapid heart rate not related to urinary retention. Bladder scan showed 148 cc. Vitals as documented. Cardizem gtt started at this time, per orders. Pt is sleepy, but awakens easily and is appropriate in conversation.
--- NOTE | 2021-10-14 14:34 | NUR ---
IV RIGHT FOREARM NOTED leaking; dressing and pt's gown is damp.
--- NOTE | 2021-10-14 18:01 | NUR ---
SHIFT NOTE PT ALERT, OCCASSIONALLY ORIENTED X3, MENATION WAXES AND WANES. PT THOROUGHLY EDUCATED ON MEDICATION ADMINISTRATION. DENIES CP OR SOB. PT'S RHYTHM HAS REMAINED IN AFIB, RATE WAS VARIABLE T/O THE DAY, HE WAS TREATED WITH LOPRESSOR FOR HR WHICH WAS NOT SUCCESSFUL DESPITE INCREASING FREQUENCY. CARDIZEM DRIP WAS ORDERED, STARTED AT 5MG/HR WITHOUT ANY ADDITIONAL TITRATION WAS SUCCESSFUL AT RATE CONTROL, HR NOW IN LOW 100s. BP HAS IMPROVED WITH HR. VSS. PT CONTINUES TO DENY CP OR SOB. PT ON AND OFF OF BED MARION, USING URINAL. PHYSICAL THERAPY WILL ATTEMPT TO SEE PT AGAIN TOMORROW NOW THAT RATE IS CONTROLLED.
[2021-10-14 18:03] LABS: Vancomycin, Trough 16.9 ug/mL (5.0-10.0)
--- NOTE | 2021-10-15 05:43 | NUR ---
BLENDING TECHNICIAN SUMMARY PT IS ALERT BUT HAS DISPLAYED OFF AND ON CONFUSION THIS SHIFT. PT COMMUNICATING APPROPRIATELY W STAFF. TELE SHOWING AFIB 90-110'S THIS SHIFT W CARDIZEM GTT AT 5MG/HR. BP STABLE. PT HAD O2 SATS >94% ON 2L NC SO O2 REMOVED AND THE PT MAINTAINED O2 SATS >91% ON RM AIR. PT SLEPT FOR MOST OF THE SHIFT W THE CALL LIGHT WITHIN REACH. URESIL DRAIN IN PLACE DRAINING 60ML DARK BROWN/RED FLUID THIS SHIFT. WILL REPORT TO ONCOMING RN.
[2021-10-15 10:33] LABS: BASOPHILS ABSOLUTE AUTO 0.04 K/mm3 (0.00-0.23); BASOPHILS PERCENT AUTO 0 % (0-2); EOSINOPHILS ABSOLUTE AUTO 0.18 K/mm3 (0.00-0.68); EOSINOPHILS PERCENT AUTO 1 % (0-6); Hematocrit 32.7 % (37.0-53.0); Hemoglobin 11.1 g/dL (13.5-17.5); IMMATURE GRAN ABSOLUTE AUTO 0.74 K/mm3 (0.00-0.10); IMMATURE GRAN PERCENT AUTO 5 % (0-1); LYMPHOCYTES ABSOLUTE AUTO 0.65 K/mm3 (0.84-5.20); LYMPHOCYTES PERCENT AUTO 4 % (21-46); MONOCYTES ABSOLUTE AUTO 0.98 K/mm3 (0.16-1.47); MONOCYTES PERCENT AUTO 6 % (4-13); Mean Corpuscular HGB 31.4 pg (26.0-34.0); Mean Corpuscular HGB Conc 33.9 g/dL (31.5-36.5); Mean Corpuscular Volume 93 fL (80-100); Mean Platelet Volume 9.9 fL (9.1-12.4); NEUTROPHILS ABSOLUTE AUTO 12.91 K/mm3 (1.96-9.15); NEUTROPHILS PERCENT AUTO 83 % (41-73); Platelet Count 185 K/mm3 (150-400); RDW Standard Deviation 47.7 fL (35.1-46.3); Red Blood Cell Count 3.53 M/mm3 (4.30-5.90)
[2021-10-15 10:52] LABS: Anion Gap 4 mmol/L (6-16); Blood Urea Nitrogen 25 mg/dL (8-24); CO2, Blood 25 mmol/L (21-32); Calcium, Blood 8.1 mg/dL (8.5-10.1); Chloride, Blood 106 mmol/L (98-108); Creatinine, Blood 1.04 mg/dL (0.60-1.20); Glomerular Filtration Rate >60 (60-); Glucose, Blood 217 mg/dL (70-99); Sodium, Blood 135 mmol/L (136-145)
--- NOTE | 2021-10-15 16:36 | NUR ---
SHIFT NOTE PT ALERT, MENTATION WAXES AND WANES T/O THE DAY, PLEASANTLY CONFUSED. CARDIZEM DRIP CONTINUES TO INFUSE AT 5MG/HR, AFIB CONTINUES ON MONITOR AT 103. VSS. REPOSITIONED NEEDED FOR COMFORT. DENIES CP, STS BREATHING HAS IMPROVED, LS IMPROVING. SMALL AMT OF BROWN DRAINAGE FROM GALLBLADDER DRAIN, DRESSING IS CHANGED TODAY. FAMILY HAS BEEN UPDATED TODAY. PT DENIES NEEDS. HAS DECENT APPETITE WITH CLEAR LIQUID DIET. PT CONTINUOUSLY EDUCATED T/O THE DAY
--- NOTE | 2021-10-16 05:50 | NUR ---
Shift summary Pt with some delirium overnoc, reorients well, VSS for most part--- HR 90-110 all night on 5mg Dilt gtt, BP holding strong ~100/70s, biliary drain with 20cc overnight. Will continue to monitor MOLLY Lamb
--- NOTE | 2021-10-16 09:35 | NUR ---
AM NOTE PATIENT IS ALERT&ORIENTED, BUT FORGETFUL AT TIMES. TELE AFIB 100-110'S. SPO2 >95% ON RA. VSS. CARDIZEM RUNNING GTT PER ORDERS. GALLBLADDER DRAIN COLLECTING MINIMAL BROWN COLOR FLUID TO GRAVITY. PATIENT TOLERATED HIS BED BATH THIS AM WELL.
[2021-10-16 09:53] LABS: BASOPHILS ABSOLUTE AUTO 0.03 K/mm3 (0.00-0.23); BASOPHILS PERCENT AUTO 0 % (0-2); EOSINOPHILS ABSOLUTE AUTO 0.18 K/mm3 (0.00-0.68); EOSINOPHILS PERCENT AUTO 1 % (0-6); Hematocrit 31.4 % (37.0-53.0); Hemoglobin 10.3 g/dL (13.5-17.5); IMMATURE GRAN ABSOLUTE AUTO 0.48 K/mm3 (0.00-0.10); IMMATURE GRAN PERCENT AUTO 3 % (0-1); LYMPHOCYTES ABSOLUTE AUTO 0.54 K/mm3 (0.84-5.20); LYMPHOCYTES PERCENT AUTO 4 % (21-46); MONOCYTES PERCENT AUTO 6 % (4-13); Mean Corpuscular HGB 30.5 pg (26.0-34.0); Mean Corpuscular HGB Conc 32.8 g/dL (31.5-36.5); Mean Corpuscular Volume 93 fL (80-100); Mean Platelet Volume 9.6 fL (9.1-12.4); NEUTROPHILS ABSOLUTE AUTO 11.97 K/mm3 (1.96-9.15); NEUTROPHILS PERCENT AUTO 86 % (41-73); Platelet Count 187 K/mm3 (150-400); RDW Coefficient Variation 13.9 % (11.7-14.2); RDW Standard Deviation 47.6 fL (35.1-46.3); Red Blood Cell Count 3.38 M/mm3 (4.30-5.90)
[2021-10-16 10:13] LABS: Anion Gap 4 mmol/L (6-16); Blood Urea Nitrogen 19 mg/dL (8-24); Bun/Creatinine Ratio 19.2 (12.0-20.0); CO2, Blood 25 mmol/L (21-32); Calcium, Blood 7.9 mg/dL (8.5-10.1); Chloride, Blood 107 mmol/L (98-108); Creatinine, Blood 0.99 mg/dL (0.60-1.20); Glomerular Filtration Rate >60 (60-); Glucose, Blood 219 mg/dL (70-99); Potassium, Blood 3.8 mmol/L (3.5-5.5); Sodium, Blood 136 mmol/L (136-145)
--- NOTE | 2021-10-16 17:35 | NUR ---
SHIFT SUMMARY PATIENT REMAINED ALERT AND ORIENTED, FORGETFUL AT TIMES T/O THE SHIFT. PATIENT REMAINS 1 PERSON ASSIST, URINATES VIA URINAL, HAD A BM TODAY. PATIENT TELE AFIB 100'S, SOP2 >96% ON RA. VSS. GALLBLADDER DRAIN DRAINING DARK BROWN FLUID PER GRAVITY, DRESSING CHANGED X2 TODAY. PATIENT'S IV CARDIZEM WAS SWITCHED TO PO PER DR BROWN, PATIENT IS TOLERATING IT WELL, HR REMAINS IN 90-100'S. PER DR BROWN, THE PLAN IS FOR PT/OT. PATIENT IS CONTINUING TO RECEIVE IV ABX. PATIENT IS TOLERATING HIS FULL LIQUID DIET WELL, EXPRESSES DESIRES TO ADVANCE DIET. WILL CONTINUE TO MONITOR UNTIL THE NEXT SHIFT.
--- NOTE | 2021-10-16 17:57 | NUR ---
SHIFT SUMMARY I HAVE REVIEWED THE NURSING STUDENTS DOCUMENTATION AND AM IN AGREEMENT. PT A&Ox3; FORGETFUL AT TIMES. PT REQUIRING ASSISTANCE WITH URINAL IN BED. 1 PERSON ASSIST. PT DENIES PAIN, CHEST PAIN/PRESSURE, NASUEA AND DIZZINESS. PT REPORTS NUMB/TINGLING TO BLE AT BASELINE. PT TRANSITIONED FORM CARDIZEM GTT THIS AM TO PO CARDIZEM, PER TELE PT HR 100-105; BP STABLE. OTHER VSS. LS DIM, INS/EXP WHEEZES IN UPPER LOBES, OCCASIONALLY SOUNDING WET; AUDIBLE WHEEZES NOTED WITH EXERTION. ABD MOD DISTENDED, TENDER ON PALPATION, NORMO ACTIVE BT x4 QUAD, PETTY DRAIN ON RIGHT SIDE DRAINING DARK BROWNISH FLUIDS. OTHER VSS. NO OTHER ACUTE CHANGES AT THIS TIME. NO S/Sx OF DISTRESS NOTED. WILL CONTINUE TO MONITOR UNITL REPORT GIVEN TO ONCOMING RN. DR BROWN AT BEDSIDE THIS AFTERNOON, NEW ORDERS FOR PT/OT AND DISCONTINUE NS.
--- NOTE | 2021-10-16 22:00 | NUR ---
CALL TO NOTIFIED BY REX BARNES AND THAT PT'S CHOLECYSTOSTOMY TUBE APPEARED TO BE OUT OF PLACE. DAY SHIFT REPORTED THAT DRAINAGE WAS SATURATING THE DRESSING AND THAT IT NEEDED TO BE CHANGED SEVERAL TIMES. REX NOTED THAT THE DISTANCE FROM THE "COOK" INSIGNIA TO THE ENTRY POINT WAS APROX 7 INCHES FURTHER OUT AND THE STITCH IS NO LONGER IN PLACE. DRAINAGE COLOR HAS ALSO CHANGED TO SEROSANGUINOUS. CALL PLACED TO DR. CONNORS AND COMMUNICATED ALL OF THE ABOVE. STATED THAT HE WILL SEE THE PT IN THE MORNING AND THAT IT SHOULD BE MAINTAINED IN PLACE AT THIS TIME WITH DRESSING CHANGES NEEDED TO ABSORB THE DRAINAGE. COMMUNICATED TO THE PRIMARY RN MUNDO FOR FURTHER MONITORING AT THIS TIME.
--- NOTE | 2021-10-16 23:01 | NUR ---
Assumed care of pt at 1900. A/Ox4 but forgetful at times. [place] with some blindness. DNR status. 1 assist. Denies any pain, CP/pressure, N/V. Slight scleral yellowing bl. Respiratory: Over 95% on RA. Expiratory wheezes upper lobes bl, and dim at bases. Nonproductive cough. Tachypneic with some accessory muscle use noted. Cardiovascular: Afib on tele avg 104 w/ paced beats. Faint pedal pulses bl. 2+ BLE pitting edema, RUE 1+ and LUE 2+. Integumentary: Pallor noted with dry/cool skin. Healing bruises from fall at home noted on L head, neck, thigh. Scattered bruises BUE. Reddened blanchable coccyx (q2 turns). Redness and edema noted at L elbow. Drains/Tubes: RUQ gallbladder drain. Suture no longer intact and tube about 6-7inches out and draining copious amounts of serosanguinous fluid. retail coordinatorMOLLY Agudelo notified Dr. Rivas and told he would see pt in the morning and to just continue with bandage changes (see note). Will update as changes occur.
[2021-10-17 04:30] LABS: BASOPHILS ABSOLUTE AUTO 0.05 K/mm3 (0.00-0.23); BASOPHILS PERCENT AUTO 0 % (0-2); EOSINOPHILS ABSOLUTE AUTO 0.19 K/mm3 (0.00-0.68); EOSINOPHILS PERCENT AUTO 1 % (0-6); Hemoglobin 10.6 g/dL (13.5-17.5); IMMATURE GRAN ABSOLUTE AUTO 0.48 K/mm3 (0.00-0.10); IMMATURE GRAN PERCENT AUTO 4 % (0-1); LYMPHOCYTES PERCENT AUTO 6 % (21-46); MONOCYTES ABSOLUTE AUTO 0.98 K/mm3 (0.16-1.47); MONOCYTES PERCENT AUTO 7 % (4-13); Mean Corpuscular HGB 30.6 pg (26.0-34.0); Mean Corpuscular HGB Conc 33.1 g/dL (31.5-36.5); Mean Corpuscular Volume 93 fL (80-100); Mean Platelet Volume 9.9 fL (9.1-12.4); NEUTROPHILS ABSOLUTE AUTO 11.07 K/mm3 (1.96-9.15); NEUTROPHILS PERCENT AUTO 82 % (41-73); Platelet Count 227 K/mm3 (150-400); RDW Coefficient Variation 14.2 % (11.7-14.2); RDW Standard Deviation 47.5 fL (35.1-46.3); Red Blood Cell Count 3.46 M/mm3 (4.30-5.90); White Blood Cell Count 13.57 K/mm3 (4.00-11.30)
[2021-10-17 04:59] LABS: Anion Gap 6 mmol/L (6-16); Blood Urea Nitrogen 15 mg/dL (8-24); Bun/Creatinine Ratio 15.5 (12.0-20.0); CO2, Blood 24 mmol/L (21-32); Calcium, Blood 7.8 mg/dL (8.5-10.1); Chloride, Blood 108 mmol/L (98-108); Creatinine, Blood 0.97 mg/dL (0.60-1.20); Glomerular Filtration Rate >60 (60-); Glucose, Blood 120 mg/dL (70-99); Sodium, Blood 138 mmol/L (136-145)
--- NOTE | 2021-10-17 07:46 | NUR ---
AM NOTE PT APPEARS TO BE SLEEPING, WAKES EASILY TO VERBAL STIMULI. ALERT, ORIENTED x4, FORGETFUL AT TIMES. PT RESTING IN BED, ASSISTS WITH POSITIONING. PT DENIES PAIN, CHEST PAIN/PRESSURE, SOB, NAUSEA AND DIZZINESS. PT REPROTS BASELNE NUMB/TINGLING TO BLE. BRUISING NOTED TO LEFT SIDE OF FACE,NECK AND LEG. TELE AFIB WITH PACED BEATS AT 104, BP STABLE. SPO2 >90% ON RA, RESP RATE 18-20, NONPRODUCTIVE COUGH NOTED, LS DIM T/O. ABD MOD DISTENDED, TENDER ON PALPITATION, NORMOACTIVE BT x4 QUAD. DRAING TO RUQ NOTED, PULLED OUT PARTIALLY, NO LONGER SECURED WTIH STITCH, DRAINGING BROWN RED LIQUID IN BAG AND SERROUS FLUID AROUND SITE. PT USING URINAL WITH MINIMAL ASSISTANCE. OTHER VSS. NO ACUTE S/SX OF DISTRESS NOTED. WILL CONTINUE TO MONITOR.
--- NOTE | 2021-10-17 15:22 | NUR ---
UPDATE PT REPORTS SOB AT REST, INCRASED RESP RATE 20-26, LABORED BREATHING; THE THORACENTESIS WAS NOT COMPLETED; NOTIFIED DR SPRING, NEW ORDERS FOR LASIX.
--- NOTE | 2021-10-17 18:17 | NUR ---
SHIFT SUMMARY DR CONNORS AT BEDSIDE THIS AM, GALLBLADDER DRAIN IS NOT PULLED OUT PARTIALLY, STILL APPEARS TO BE IN PLACE, DRESSING AND SECUREMENT DEVICE REPLACED WITH DR CONNORS AT BEDSIDE. PT BREATING IMPROVED AFTER LASIX, NO LONGER LABORED/SOB. PT CONTINUES TO BE FORGETFUL AT TIMES. VSS. NO S/SX OF DISTRESS NOTED. WILL CONTINUE TO MONITOR.
[2021-10-18 04:38] LABS: BASOPHILS ABSOLUTE AUTO 0.05 K/mm3 (0.00-0.23); BASOPHILS PERCENT AUTO 0 % (0-2); EOSINOPHILS ABSOLUTE AUTO 0.17 K/mm3 (0.00-0.68); EOSINOPHILS PERCENT AUTO 2 % (0-6); Hematocrit 32.5 % (37.0-53.0); Hemoglobin 10.6 g/dL (13.5-17.5); IMMATURE GRAN ABSOLUTE AUTO 0.31 K/mm3 (0.00-0.10); IMMATURE GRAN PERCENT AUTO 3 % (0-1); LYMPHOCYTES ABSOLUTE AUTO 0.92 K/mm3 (0.84-5.20); LYMPHOCYTES PERCENT AUTO 8 % (21-46); MONOCYTES ABSOLUTE AUTO 0.83 K/mm3 (0.16-1.47); MONOCYTES PERCENT AUTO 8 % (4-13); Mean Corpuscular HGB 30.5 pg (26.0-34.0); Mean Corpuscular HGB Conc 32.6 g/dL (31.5-36.5); Mean Corpuscular Volume 94 fL (80-100); Mean Platelet Volume 9.6 fL (9.1-12.4); NEUTROPHILS ABSOLUTE AUTO 8.86 K/mm3 (1.96-9.15); NEUTROPHILS PERCENT AUTO 80 % (41-73); Platelet Count 246 K/mm3 (150-400); RDW Coefficient Variation 14.1 % (11.7-14.2); RDW Standard Deviation 47.8 fL (35.1-46.3); Red Blood Cell Count 3.47 M/mm3 (4.30-5.90); White Blood Cell Count 11.14 K/mm3 (4.00-11.30)
--- NOTE | 2021-10-18 04:52 | NUR ---
SHIFT SUMMARY PATIENT ALERT AND ORIENTED x3-4 BUT IS FORGETFUL AT TIMES. PATIENT HAS SLEPT FOR THE MAJOIRTY OF THE SHIFT BUT WAKES EASILY TO VERBAL STIMULI. ANSWERS QUESTIONS APPROPRIATLEY AND IS ABLE TO MAKE NEEDS KNOWN TO STAFF. VSS. PATIENT ON RA T/O THE NIGHT WITH O2 SAT >90%. GALLBLADDER DRAIN IN PLACE, DRAINING DARK RED/BROWN LIQUID. DRESSING REMAINS C/D/I. PATIENT USING URINAL WITH ASSISTANCE AT TIMES. ADEQUATE URINE OUTPUT THIS SHIFT. BED IN LOW POSITION, CALL LIGHT IN REACH. NO OTHER SIGNIFICANT CHANGES THIS SHIFT. WILL REPORT TO DAY SHIFT RN.
[2021-10-18 04:59] LABS: Alanine Aminotransfer (ALT/SGP 15 U/L (12-78); Albumin, Blood 1.9 g/dL (3.4-5.0); Albumin/Globulin Ratio 0.5 (0.8-1.8); Alk Phos 74 U/L (50-136); Anion Gap 6 mmol/L (6-16); Aspartate Aminotrans (AST/SGOT 23 U/L (12-37); Bilirubin, Total 0.9 mg/dL (0.1-1.0); Blood Urea Nitrogen 16 mg/dL (8-24); Bun/Creatinine Ratio 16.3 (12.0-20.0); CO2, Blood 25 mmol/L (21-32); Chloride, Blood 106 mmol/L (98-108); Creatinine, Blood 0.98 mg/dL (0.60-1.20); Globulin, Blood 3.7 g/dL (2.2-4.0); Glomerular Filtration Rate >60 (60-); Glucose, Blood 124 mg/dL (70-99); Potassium, Blood 3.9 mmol/L (3.5-5.5); Sodium, Blood 137 mmol/L (136-145); Total Protein, Blood 5.6 g/dL (6.4-8.2)
[2021-10-18 09:34] LABS: Influenza A, PCR NEGATIVE (NEGATIVE); Influenza B, PCR NEGATIVE (NEGATIVE); Resp Syncytial Virus, PCR NEGATIVE (NEGATIVE); SARS-Cov-2 (COVID-19) PCR, MMC NEGATIVE (NEGATIVE)
[2021-10-18] MEDS ORDERED: DILT120 PO (13:10)
[2021-10-18] MEDS ORDERED: TRESIBA FL100 UNIT/2 SC (13:10)
[2021-10-18] MEDS ORDERED: ONDA4 PO (13:11)
[2021-10-18] MEDS ORDERED: CIPR500 PO (13:12)
[2021-10-18] MEDS ORDERED: METR500 PO (13:13)
--- NOTE | 2021-10-18 14:54 | NUR ---
DISCHARGE SUMMARY PT A&Ox4; CALM AND COOPERATIVE WITH CARE. PT UP WITH 1 PERSON ASSIST WITH WALKER AND GAIT BELT. PT SLEEPY THIS AM, WAKES EASILY TO VERBAL STIMULI, THIS AFTERNOON PT A&O. PT DENIES PAIN, CHEST PAIN/PRESSURE, SOB, NASUEA AND DIZZINESS. TELE AFIB 100'S, BP SOFT BUT STABLE. LS DIM T/O, SPO2 >90% ON RA. ABD MILD DISTENTION, TENDER. RUQ DRAIN IN PLACE, DRESSING CHANGED, SECUREMENT DEVICE IN PLACE AND STABLE. BRUISING TO LEFT FACE, NECK, DOWN TO KNEE. OTHER VSS. NO S/SX OF DISTRESS. NO ACUTE CHANGES. PT [facility] DA[facility] REPORT GIVEN TO PHIL NURSE ASSUMING CARE OF PATIENT AT 1411; PT LEFT ROOM WITH TRANSPORT AT 1410.
== END 2021-10-18 14:10 | DRG 871 ==
LOC: ER 12:16 → MEDS 16:31 → ICUW 16:31 → PCU 16:31 → MEDS 16:36 → PCU 10-10 03:19 → ICUW 10-11 05:59 → PCU 10-13 05:26
PROVIDERS: Emergency Medicine; Family Medicine; Internal Medicine; Pharmacist; Surgery; ADMIT Internal Medicine
PROC: 3E03329 Introduction of Other Anti-infective into Peripheral Vein, Percutaneous Approach (ICD-10-PCS; 2021-10-09)
PROC: 5A09357 Assistance with Respiratory Ventilation, Less than 24 Consecutive Hours, Continuous Positive Airway Pressure (ICD-10-PCS; 2021-10-11)
PROC: 0F9430Z Drainage of Gallbladder with Drainage Device, Percutaneous Approach (ICD-10-PCS; principal; 2021-10-17)
DX: A41.9 Sepsis, unspecified organism (principal); J18.9 Pneumonia, unspecified organism; J96.00 Acute respiratory failure, unspecified whether with hypoxia or hypercapnia; S02.842A Fracture of lateral orbital wall, left side, initial encounter for closed fracture; T85.510A Breakdown (mechanical) of bile duct prosthesis, initial encounter; I48.19 Other persistent atrial fibrillation; E87.1 Hypo-osmolality and hyponatremia; E87.2 Acidosis; N17.9 Acute kidney failure, unspecified; I50.22 Chronic systolic (congestive) heart failure; F05 Delirium due to known physiological condition; K56.7 Ileus, unspecified; K80.00 Calculus of gallbladder with acute cholecystitis without obstruction; I13.0 Hypertensive heart and chronic kidney disease with heart failure and stage 1 through stage 4 chronic kidney disease, or unspecified chronic kidney disease; Z79.899 Other long term (current) drug therapy; E78.5 Hyperlipidemia, unspecified; Z20.822 Contact with and (suspected) exposure to COVID-19; E87.6 Hypokalemia; D63.8 Anemia in other chronic diseases classified elsewhere; S09.90XA Unspecified injury of head, initial encounter; Z98.890 Other specified postprocedural states; Z98.49 Cataract extraction status, unspecified eye; I08.1 Rheumatic disorders of both mitral and tricuspid valves; K44.9 Diaphragmatic hernia without obstruction or gangrene; D69.6 Thrombocytopenia, unspecified; N18.9 Chronic kidney disease, unspecified; K21.9 Gastro-esophageal reflux disease without esophagitis; E83.39 Other disorders of phosphorus metabolism; Z95.0 Presence of cardiac pacemaker; Z88.8 Allergy status to other drugs, medicaments and biological substances
CPT/HCPCS: 0241U; 36415; 49180; 71045; 74150; 74176; 76604; 76705; 77012; 80048; 80053; 80202; 81001; 82248; 82803; 82947; 83605; 83735; 83880; 84100; 84145; 84484; 85025; 85610; 85730; 87040; 87077; 87086; 87186; 93005; 93010; 93306; 94660; 94760; 94762; 96365; 96375; 97110; 97116; 97162; 97166; 97530; 97535; 99285-25; A9270; C9113; J0456; J0692; J0696; J1815; J1940; J2060; J3010; J3370; J7030; J7050; J7060; J7120

== ENCOUNTER 2021-11-29 05:54 | Day surgery (SDC) | payer MEDICARE, OTHER ==
[~2021-11-29] VITALS: Ht 177.8 cm; Wt 65.3 kg
[~2021-11-29 05:54] MED LIST changes: +ACET500 PO; +CIPR500 PO; +DIGOX125 MC1 PO; +DILT120 PO; +FUROSEMIDE20 MG PO; +LORA.5 PO; +MELATONIN5 M1 PO; +METR500 PO; +Mucus Relief400 MG PO; +ONDA4 PO; +TRESIBA FL100 UNIT/2 SC
--- NOTE | 2021-11-29 07:36 | NUR ---
History, Chart, Medications and Allergies reviewed before start of procedure. Patient confirms NPO status and agrees with scheduled surgery. Pre-Op teaching done. Pt verbalizes understanding.
[2021-11-29 07:41] LABS: BASOPHILS ABSOLUTE AUTO 0.03 K/mm3 (0.00-0.23); BASOPHILS PERCENT AUTO 1 % (0-2); EOSINOPHILS ABSOLUTE AUTO 0.21 K/mm3 (0.00-0.68); EOSINOPHILS PERCENT AUTO 4 % (0-6); Hematocrit 36.8 % (37.0-53.0); Hemoglobin 12.2 g/dL (13.5-17.5); IMMATURE GRAN ABSOLUTE AUTO 0.01 K/mm3 (0.00-0.10); IMMATURE GRAN PERCENT AUTO 0 % (0-1); LYMPHOCYTES ABSOLUTE AUTO 0.66 K/mm3 (0.84-5.20); LYMPHOCYTES PERCENT AUTO 11 % (21-46); MONOCYTES ABSOLUTE AUTO 0.44 K/mm3 (0.16-1.47); MONOCYTES PERCENT AUTO 8 % (4-13); Mean Corpuscular HGB 30.5 pg (26.0-34.0); Mean Corpuscular HGB Conc 33.2 g/dL (31.5-36.5); Mean Corpuscular Volume 92 fL (80-100); Mean Platelet Volume 9.6 fL (9.1-12.4); NEUTROPHILS ABSOLUTE AUTO 4.52 K/mm3 (1.96-9.15); NEUTROPHILS PERCENT AUTO 77 % (41-73); Platelet Count 167 K/mm3 (150-400); RDW Coefficient Variation 13.2 % (11.7-14.2); RDW Standard Deviation 44.8 fL (35.1-46.3); White Blood Cell Count 5.87 K/mm3 (4.00-11.30)
--- NOTE | 2021-11-29 10:39 | NUR ---
1026- PT ALERT AND ORIENTED, STATES HE FEELS LIKE HIS BLOOD SUGAR IS LOW AND WOULD LIKE TO BE CHECKED. BLOOD SUGAR 156. NOTIFIED DR STUART. PAIN WAS 0/10, NOW 3/10, RECIEVED ORDER FOR PO TYLENOL. PT DENIES NAUSEA. PAS PUMP ON, DRAINED 20 CC OF RED DRAINAGE FROM RAF DRAIN.
--- NOTE | 2021-11-29 11:26 | NUR ---
ARRIVAL TO SURGICAL FLOOR: PT ARRIVED TO THE UNIT FROM PACU AT 11:20.
--- NOTE | 2021-11-29 17:59 | NUR ---
SHIFT SUMMARY: PT IS VERY PLEASANT. DROWSINESS FROM SURGERY APPEARS TO HAVE WORN OFF. PT IS ABLE TO DANGLED AT BEDSIDE TO USE THE URINAL AND EAT DINNER. CLEAR LIQUID DIET IS WELL MANAGED. RAF DRAIN HAS A MODERATE AMOUNT OF BLOODY DRAINAGE. LIGHT EXUDATE NOTED ON THE GAUZE COVERING THE DRAIN. PT DID HAVE AN EPISODE OF V-TACH THAT LASTED APPROXIMATELY ONE MINUTE. LIFE CYCLE ASSESSMENT ANALYST REPORTED SEVERAL RUNS OF V-TACH THEN RESUMED SINUS TACH. PT CONTINUES TO DENY CHEST PAIN AND DIZZINESS.
--- NOTE | 2021-11-29 22:56 | NUR ---
HEART RHYTHM, SALSA DANCE INSTRUCTOR CALLED TO NOTIFY 8 BEAT RUN OF V-TACH, AND SOME PVC'S. CONFIRMED BY TELE THAT HE IS TACHY SINUS AT 106. CHECKED ON PT HE DENIES CHEST PAIN, AND NO SOB. PT "WOULD LIKE TO RESUME SLEEPING", WILL CONTINUE CARE ROUNDING.
--- NOTE | 2021-11-30 04:33 | NUR ---
SHIFT SUMMARY: PT POD1 FOR LAP PETTY, LAP SITES 4, W/ RAF DRAIN TO R ABD. GAUZE W/ TEGADERM DRESSING C/D/I. MINIMAL SEROSANGUINOUS DRAINAGE EMPTIED FROM RAF APROX 30MLS. PT TOLERATES CL DIET, VOIDS ONCE THIS SHIFT. FLUIDS RUNNING FOR MAINTENENCE, PER EMAR. TELE MONITOR ON, PT HAD A RUN OF V-TACH ENGINE REPAIRER SERVICE NOTIFIED THIS STUDENT NURSE. PT WAS ASYMPTOMATIC, DENIED CP, SOB. SAT 95-98 ON RA. PT DECLINES NEED FOR PAIN MEDICATION THIS SHIFT. VSS, CALLS APROPRIATELY, WILL CONTINUE CARE.
--- NOTE | 2021-11-30 06:33 | NUR ---
POD 1 S/P LAP PETTY. PT HAD SEVERAL RUNS OF VATCH; LONGEST WAS 10 BEATS. PT ASYMPTOAMTIC, OTHER VSS. DRESSINGS CDI, RAF PUT OUT APPX 35ML SS DRNG. PT REP ABD PAIN MINIMAL, DECLINED NEED FOR PAIN MEDS. PT MARIELY CL PO, DENIED N/V, REP +FLATUS THIS AM. PT VOIDING URINE W/O DIFFICULTY. IVF CONT PER ORDERS. PT UP OOB WSBA, MARIELY WELL.
--- NOTE | 2021-11-30 08:45 | NUR ---
DISCHARGE EATING, DRINKING, VOIDING, & PASSING GAS. DR CONNORS REMOVED RAF DURING AM ROUNDS. PT VERY EXCITED TO DC & CHECK ON HIS . DISCUSSED MED CHANGES w/ PT & DAUGHTER. COPY OF ORDERS SENT w/ PT TO GIVE TO CAREGIVERS AT FACILITY. ESCORTED OUT VIA W/C TO DAUGHTER.
== END 2021-11-30 08:45 | disposition home or self-care (01) ==
LOC: ORSCMMR 05:54 → ORD 07:30 → ORSCMMR 07:30 → SURS 11:15 → ORSCMMR 11-30 08:45
PROVIDERS: Student in an Organized Health Care Education/Training Program; Surgery
PROC: 0FT44ZZ Resection of Gallbladder, Percutaneous Endoscopic Approach (ICD-10-PCS; principal; 2021-11-29 07:30)
PROC: BF031ZZ Plain Radiography of Gallbladder and Bile Ducts using Low Osmolar Contrast (ICD-10-PCS; principal; 2021-11-29 07:30)
DX: K80.10 Calculus of gallbladder with chronic cholecystitis without obstruction (principal); Z43.4 Encounter for attention to other artificial openings of digestive tract; I48.91 Unspecified atrial fibrillation; Z79.01 Long term (current) use of anticoagulants; Z95.0 Presence of cardiac pacemaker; I50.9 Heart failure, unspecified; E11.22 Type 2 diabetes mellitus with diabetic chronic kidney disease; I12.9 Hypertensive chronic kidney disease with stage 1 through stage 4 chronic kidney disease, or unspecified chronic kidney disease; N18.30 Chronic kidney disease, stage 3 unspecified; E11.40 Type 2 diabetes mellitus with diabetic neuropathy, unspecified; Z79.4 Long term (current) use of insulin; Z79.899 Other long term (current) drug therapy; D50.9 Iron deficiency anemia, unspecified; K21.9 Gastro-esophageal reflux disease without esophagitis
CPT/HCPCS: 74300; 82947; 85025; 88304; A9270; J0330; J0694; J1100; J1885; J2370; J2405; J2704; J3010; J7120

== ENCOUNTER → 2022-08-28 | Outpatient (CLI) | payer MEDICARE, OTHER ==
[2022-08-28 11:22] LABS: BASOPHILS ABSOLUTE AUTO 0.04 K/mm3 (0.00-0.23); BASOPHILS PERCENT AUTO 1 % (0-2); EOSINOPHILS ABSOLUTE AUTO 0.35 K/mm3 (0.00-0.68); EOSINOPHILS PERCENT AUTO 7 % (0-6); Hematocrit 41.9 % (37.0-53.0); Hemoglobin 14.3 g/dL (13.5-17.5); IMMATURE GRAN ABSOLUTE AUTO 0.02 K/mm3 (0.00-0.10); IMMATURE GRAN PERCENT AUTO 0 % (0-1); LYMPHOCYTES ABSOLUTE AUTO 0.76 K/mm3 (0.84-5.20); LYMPHOCYTES PERCENT AUTO 14 % (21-46); MONOCYTES ABSOLUTE AUTO 0.38 K/mm3 (0.16-1.47); MONOCYTES PERCENT AUTO 7 % (4-13); Mean Corpuscular HGB 31.4 pg (26.0-34.0); Mean Corpuscular HGB Conc 34.1 g/dL (31.5-36.5); Mean Corpuscular Volume 92 fL (80-100); Mean Platelet Volume 10.7 fL (9.1-12.4); NEUTROPHILS ABSOLUTE AUTO 3.82 K/mm3 (1.96-9.15); NEUTROPHILS PERCENT AUTO 71 % (41-73); Platelet Count 170 K/mm3 (150-400); RDW Coefficient Variation 12.2 % (11.7-14.2); Red Blood Cell Count 4.56 M/mm3 (4.30-5.90); White Blood Cell Count 5.37 K/mm3 (4.00-11.30)
[2022-08-28 12:56] LABS: Albumin, Blood 3.6 g/dL (3.4-5.0); Albumin/Globulin Ratio 0.9 (0.8-1.8); Bilirubin, Total 1.1 mg/dL (0.1-1.0); Bun/Creatinine Ratio 20.5 (12.0-20.0); Calcium, Blood 9.4 mg/dL (8.5-10.1); Creatinine, Blood 1.22 mg/dL (0.60-1.20); Percent Saturation 36.1 % (20.0-50.0); Potassium, Blood 4.2 mmol/L (3.5-5.5); Total Protein, Blood 7.6 g/dL (6.4-8.2)
== END | disposition home or self-care (01) ==
LOC: LAB SHORT 10:30
PROVIDERS: Family Medicine
DX: E11.42 Type 2 diabetes mellitus with diabetic polyneuropathy (principal); E11.69 Type 2 diabetes mellitus with other specified complication; E11.65 Type 2 diabetes mellitus with hyperglycemia; D50.8 Other iron deficiency anemias
CPT/HCPCS: 80053; 82728; 83036; 83540; 83550; 85025